=== PATIENT | male | born 1960 | race Caucasian/White ===

== ENCOUNTER 2017-02-25 07:42 | Emergency (ER) | payer MEDICAID ==
[~2017-02-25] VITALS: Ht 177.8 cm; Wt 90.0 kg
[~2017-02-25 07:42] MED LIST: AMLODIPINE5 MG PO; BENTYL10 MG PO; CIPROFLOXACN500 MG PO; COUMADIN5 MG PO; DICLOXACILL500 MG PO; FLEXERIL PO; LIPITOR20 MG PO; LISINOPRIL20 MG PO; NAPROSYN500 MG PO; NO; NORVASC PO; PERCOCET 5/325M1 TAB PO; PRILOSEC OTC20 MG OR; PYRIDIUM200 MG PO; ULTRAM50 MG PO
[2017-02-25 08:42] LABS: HEMATOCRIT 43.4 % (39.0-50.0); HEMOGLOBIN 14.7 g/dl (14.0-18.0); IMMATURE GRANULOCYTES 0.3 % (0.0-1.0); MEAN CELL VOLUME 99.3 fL CALC (80.0-100.0); MEAN CORPUSCULAR HGB 33.6 pG CALC (26.0-32.0); MEAN CORPUSCULAR HGB CONC 33.9 g/L CALC (32.0-36.0); NEUT# 4.24 thou/uL (1.82-7.42); RED BLOOD COUNT 4.37 mill/uL (4.70-6.10); RED CELL DISTRI WIDTH 13.1 % (11.5-15.5)
[2017-02-25 08:52] LABS: ALBUMIN 4.1 g/dL (3.2-5.0); ALKALINE PHOSPHATASE 98 u/l (38-126); AMYLASE 47 u/l (30-110); ANION GAP 15 (6-22 (CALC)); BILIRUBIN, TOTAL 0.7 mg/dL (0.0-1.4); BUN 10 mg/dL (9-20); BUN/CREATININE RATIO 12 (12-20 (CALC)); CALCIUM 9.1 mg/dL (8.4-10.2); CARBON DIOXIDE 26 mmol/l (22-30); CHLORIDE 106 mmol/l (95-108); CREATININE 0.9 mg/dL (0.7-1.3); ETHYL ALCOHOL 51 mg/dl (0-30); GFR > 60 ML/MIN (>=60 (CALC)); GFR FOR AFR.AMER. > 60 ML/MIN (>=60 (CALC)); GLUCOSE 82 mg/dL (75-110); LIPASE 144 u/l (23-300); POTASSIUM 4.4 mmol/l (3.5-5.1); SGOT/AST 40 u/l (17-59); SGPT/ALT 54 u/l (21-72); SODIUM 143 mmol/l (137-146); TOTAL PROTEIN 6.9 g/dL (6.3-8.2)
[2017-02-25 09:04] LABS: MYOGLOBIN 36 ng/mL (0 - 121)
[2017-02-25 09:14] LABS: INTERNATIONAL NORMALIZED RATIO 0.9 RATIO (0.7-1.3); PROTHROMBIN TIME 9.8 SECONDS (9.0-12.5)
[2017-02-25 11:02] LABS: URINE BILIRUBIN - DIPSTICK NEGATIVE (NEGATIVE); URINE BLOOD DIPSTICK NEGATIVE (NEGATIVE); URINE CLARITY CLEAR; URINE COLOR YELLOW; URINE GLUCOSE - DIPSTICK NEGATIVE (NEGATIVE); URINE KETONE NEGATIVE (NEGATIVE); URINE LEUK ESTERASE NEGATIVE (NEGATIVE); URINE NITRITE - DIPSTICK NEGATIVE (Negative); URINE PROTEIN - DIPSTICK NEGATIVE (NEG-TRACE); URINE SPECIFIC GRAVITY <=1.005; URINE UROBILINOGEN - DIPSTICK 0.2 E.U./dL (0.2)
[2017-02-25] MEDS ORDERED: PEPCID20 MG PO (11:23)
[2017-02-25] MEDS ORDERED: FLEXERIL PO (11:23)
[2017-02-25] MEDS ORDERED: MEDDOSEPAK PO (11:23)
[2017-02-25 11:28] VITALS: BP 155/96
== END 2017-02-25 11:30 | disposition home or self-care (01) | DRG 74 ==
LOC: ED 07:42
PROVIDERS: Emergency Medicine
DX: M54.12 Radiculopathy, cervical region (principal); G89.29 Other chronic pain; M54.2 Cervicalgia

== ENCOUNTER 2017-08-27 13:56 | Inpatient (IN) | payer MEDICAID ==
[2017-08-27] VITALS (9 sets, daily range): BP systolic 137–167; BP diastolic 77–105
[~2017-08-27] VITALS: Ht 177.8 cm; Wt 89.4 kg
[~2017-08-27 13:56] MED LIST changes: +MEDDOSEPAK PO; +PEPCID20 MG PO
--- NOTE | 2017-08-27 13:56 | NUR ---
PT TO ROOM 10 VIA EMS.
--- NOTE | 2017-08-27 14:15 | NUR ---
INTRODUCED SELT TO PT. PT REPORTS SOB, COUGH AND CHEST PAIN X 4 WEEKS. LS COURSE BILATERALLY, PATIENT REPORTS PRODUCTIVE COUGH WITH WHITE SPUTUM. PATIENT SINUS TACH ON THE MONITOR. MD AWARE OF PT CONDITION.
[2017-08-27 14:44] LABS: HEMATOCRIT 46.2 % (39.0-50.0); HEMOGLOBIN 15.8 g/dl (14.0-18.0); IMMATURE GRANULOCYTES 0.2 % (0.0-1.0); MEAN CELL VOLUME 102.7 fL CALC (80.0-100.0); MEAN CORPUSCULAR HGB 35.1 pG CALC (26.0-32.0); MEAN CORPUSCULAR HGB CONC 34.2 g/L CALC (32.0-36.0); NEUT# 3.08 thou/uL (1.82-7.42); RED BLOOD COUNT 4.5 mill/uL (4.70-6.10); RED CELL DISTRI WIDTH 11.9 % (11.5-15.5)
--- NOTE | 2017-08-27 15:10 | NUR ---
PATIENT REPORTS 8/10 MIDSTERNAL CHEST PAIN, PATIENT DENIES PAIN RADIATING AT THIS TIME. PATIENT REPORTS SOB SAO2 97% ON ROOM AIR. 2L OF O2 NC. NOTIFIED, AWAITING ORDERS.
[2017-08-27 15:34] LABS: ALBUMIN 4.2 g/dL (3.2-5.0); ALKALINE PHOSPHATASE 80 u/l (38-126); ANION GAP 18 (6-22 (CALC)); BILIRUBIN, TOTAL 0.6 mg/dL (0.0-1.4); BUN 6 mg/dL (9-20); BUN/CREATININE RATIO 8 (12-20 (CALC)); CALCIUM 9.1 mg/dL (8.4-10.2); CARBON DIOXIDE 25 mmol/l (22-30); CHLORIDE 110 mmol/l (95-108); CREATININE 0.8 mg/dL (0.7-1.3); GFR > 60 ML/MIN (>=60 (CALC)); GFR FOR AFR.AMER. > 60 ML/MIN (>=60 (CALC)); GLUCOSE 107 mg/dL (75-110); POTASSIUM 3.9 mmol/l (3.5-5.1); SGOT/AST 54 u/l (17-59); SGPT/ALT 63 u/l (21-72); SODIUM 149 mmol/l (137-146); TOTAL PROTEIN 6.8 g/dL (6.3-8.2)
--- NOTE | 2017-08-27 15:35 | NUR ---
PATIENT REPORTIGN COMTINUED 8/10 MID STERNAL CHEST PAIN. VERBAL ORDER RECIEVED FROM ER MD FOR NITRO 0.4 MG SL. NITRO SL GIVEN WILL CONTINUE TO MONITOR PATIENT.
[2017-08-27 15:44] LABS: MYOGLOBIN 24 ng/mL (0 - 121)
--- NOTE | 2017-08-27 15:49 | NUR ---
REPEAT EKG COMPLETED DUE TO CONTINUED CHEST PAIN. PATIENT SHOWING SINUS RHYTHM AT 89.
--- NOTE | 2017-08-27 16:30 | NUR ---
PATIENT REPORTS THE MORPHINE "HELPED FOR ABOUT A MINUTE". WHEN QUESTIONED FURTHER PATIENT REPORTS PAIN IS NOW A 5/10 "BUT IT'S COMING BACK" PATIENT AWARE OF PROBABLE ADMISSION. PATIENT RESTING COMFORTABLY IN STRETCHER WITH HOB ELEVATED. WILL CONTINUE TO MONITOR.
--- NOTE | 2017-08-27 17:00 | NUR ---
MD AT BEDSIDE TO DISCUSS RESULTS AND ADMISSION. PATIENT DENIES ANY SOB AT THIS TIME AND REPORTS CONTINUED 8/10 MID STERNAL CHEST PAIN. MD AWARE OF CONTINUED PAIN, AWAITING ADMIT ORDERS.
--- NOTE | 2017-08-27 17:17 | NUR ---
JOES MARIAAR PRINTED TO [id number].
--- NOTE | 2017-08-27 17:35 | NUR ---
PATIENT HYPERTENSIVE AND REPORTS CONTINUED 8/10 MIDSTERNAL CHEST PAIN, PATIENT DENIES SOB AT THIS TIME. AWAITING ORDERS.
--- NOTE | 2017-08-27 17:50 | NUR ---
IV NITRO INITIATED PER PROTOCOL. PATIENT DENIES ANY RELIEF FROM NITRO DRIP.
--- NOTE | 2017-08-27 18:15 | NUR ---
PATIENT REPORTS HX OF BILATERAL PE A FEW YEARS AGO. PATIENT WAS ON COUMADIN BUT HAS NOT BEEN ON IT FOR THE PAST YEAR OR SO. PATIENT STATES "YOU KNOW THIS [place] FEELS THE SAME THING". MD NOTIFIED.
--- NOTE | 2017-08-27 18:22 | NUR ---
PATIENT REPORTS PAIN IS NOW 5/10 AND HAS HAD SOME RELIEF. PATIENT AWARE OF PLAN OF CARE. WILL CONTINUE TO MONITOR.
--- NOTE | 2017-08-27 18:49 | NUR ---
PATIENT RETURNED FROM CT, PATIENT REPORTS SOB FROM LAYING FLAT DURING CT. HOB ELEVATED TO HF POSITION. PAITNE ON 2 L NC. SAO2 95% ON 2L NC. REPORT GIVEN TO LAVELL RUBI.
--- NOTE | 2017-08-27 18:55 | NUR ---
REPORT RECEIVED. CARE ASSUMED. PATIENT SITTING UP ON STRETCHER, ATTEMPTING TO EAT DINNER. STATES HIS WHOLE BODY JUST FEELS BAD. STATES HE FEELS LIKE HE IS STRUGGLING FOR AIR. PATIENT APPEARS ANXIOUS, ENCOURAGED TO BREATH THROUGH NOSE WHERE HE HAS O2 ON. AWAITING CT RESULTS PRIOR TO TRANSFER TO ICU. WILL CONTINUE TO MONITOR.
--- NOTE | 2017-08-27 19:30 | NUR ---
PATIENT STATES HIS FEELING IN HIS BODY IS UNCHANGED. REMAINS ANXIOUS BY APPEARANCE.
--- NOTE | 2017-08-27 19:32 | NUR ---
NTG GTT INCREASED TO 15MCG. STATES PAIN IS A 7 ON 1-10 PAIN SCALE. BP 166/95 IVF HUNG ORDERED. WILL CONTINUE TO MONITOR.
--- NOTE | 2017-08-27 19:53 | NUR ---
PATIENT ABLE TO FIND A POSITION OF COMFORT. STATES HE IS FEELING SLIGHTLY BETTER. NTG GTT REMAINS AT 15 MCG. BP IMPROVED. AWAITING BED ASSIGNMENT IN ICU.
--- NOTE | 2017-08-27 20:10 | NUR ---
REPORT CALLED TO ED IN ICU. PATIENT READIED FOR TRANSPORT TO FLOOR VIA STRETCHER, ON MONITOR, AND ACCOMPANIED BY RN.
--- NOTE | 2017-08-27 20:26 | NUR ---
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
--- NOTE | 2017-08-27 20:35 | NUR ---
ntg gtt titrated to 25mcg/min; po fluids and soda provided as per request
--- NOTE | 2017-08-27 21:01 | NUR ---
Dr Funes notified of pt complaints of midsternal chest pain rating 8/10; informed pt with complaints of SOB, sat 96% on 2L, lung sound coarse; also informed pt with complaints of "panic attack"; orders to be placed
--- NOTE | 2017-08-27 22:05 | NUR ---
awake in bed; admits to "some" pain relief; states pain as 6/10; iv patent; ntg gtt cont at 30mcg/min; sr on monitor; o2 per nc; no distress noted; call light within reach; will continue to monitor
--- NOTE | 2017-08-27 22:58 | NUR ---
awake; complaints of "panic" feeling; admits to pain feeling better; medicated with ativan as per orders
--- NOTE | 2017-08-27 23:50 | NUR ---
awake; no distress noted; voices no complaints at this time; iv patent; ntg gtt at 30mcg/min; no redness or edema noted at site; pt voided 275 cc cortez urine; specimen sent to lab; sr on monitor; o2 per nc; call light within reach; will continue to monitor
[2017-08-28] VITALS (25 sets, daily range): BP systolic 140–170; BP diastolic 74–92
[2017-08-28 00:02] LABS: URINE BILIRUBIN - DIPSTICK NEGATIVE (NEGATIVE); URINE BLOOD DIPSTICK NEGATIVE (NEGATIVE); URINE CLARITY CLEAR; URINE COLOR YELLOW; URINE GLUCOSE - DIPSTICK NEGATIVE (NEGATIVE); URINE KETONE NEGATIVE (NEGATIVE); URINE LEUK ESTERASE NEGATIVE (NEGATIVE); URINE NITRITE - DIPSTICK NEGATIVE (Negative); URINE PH 5.5 (4.5-8.0); URINE PROTEIN - DIPSTICK NEGATIVE (NEG-TRACE); URINE UROBILINOGEN - DIPSTICK 0.2 E.U./dL (0.2)
--- NOTE | 2017-08-28 00:20 | NUR ---
paving and surfacing labourer at bedside
--- NOTE | 2017-08-28 01:29 | NUR ---
pt with complaints of midsternal chest pain rating 8/10; medicated as per orders; rishabh cross provided as per pt request; will continue to monitor
--- NOTE | 2017-08-28 02:17 | NUR ---
awake; admits to some pain relief; no distress noted; sr on monitor; iv patent; call light within reach; will continue to monitor
--- NOTE | 2017-08-28 03:53 | NUR ---
pt infection control specialist light stating "I don't feel well"; when asked to elaborate, pt states I have a headache and my nerves are bad; medicated with tylenol and librium as per orders; will continue to monitor
--- NOTE | 2017-08-28 05:52 | NUR ---
awake; requesting "shot"; admits to pain rating 8/10 in midsternal area and headache; medicated; sr on monitor; iv patent; no redness or edema noted at site; o2 per nc; labels molder at bedside; bed in lowest position; call light within reach
[2017-08-28 06:12] LABS: HEMATOCRIT 39.9 % (39.0-50.0); HEMOGLOBIN 13.4 g/dl (14.0-18.0); IMMATURE GRANULOCYTES 0.3 % (0.0-1.0); MEAN CELL VOLUME 103.6 fL CALC (80.0-100.0); MEAN CORPUSCULAR HGB 34.8 pG CALC (26.0-32.0); MEAN CORPUSCULAR HGB CONC 33.6 g/L CALC (32.0-36.0); NEUT# 5.11 thou/uL (1.82-7.42); RED BLOOD COUNT 3.85 mill/uL (4.70-6.10); RED CELL DISTRI WIDTH 11.8 % (11.5-15.5)
[2017-08-28 06:25] LABS: ANION GAP 10 (6-22 (CALC)); BUN 9 mg/dL (9-20); BUN/CREATININE RATIO 11 (12-20 (CALC)); CALCIUM 8.7 mg/dL (8.4-10.2); CARBON DIOXIDE 29 mmol/l (22-30); CHLORIDE 107 mmol/l (95-108); CREATININE 0.8 mg/dL (0.7-1.3); GFR > 60 ML/MIN (>=60 (CALC)); GFR FOR AFR.AMER. > 60 ML/MIN (>=60 (CALC)); GLUCOSE 95 mg/dL (75-110); MAGNESIUM 1.7 mg/dL (1.6-2.3); POTASSIUM 3.6 mmol/l (3.5-5.1); SODIUM 142 mmol/l (137-146)
[2017-08-28 06:26] LABS: CHOLESTEROL HDL RATIO 1.6 (<4.4 (CALC))
--- NOTE | 2017-08-28 07:25 | NUR ---
PT SITTING UP IN BED, ALERT AND ORIENTED, SKIN WARM AND DRY, PT COMPLAINTS OF MIDSTERNAL PAIN WITH HEADACHE, AGAIN EDUCATED REGARDING HEADACHE RELATED TO NITRO GTT, AM ASSESSMENT COMPLETED, SEE INTERVENTIONS, BILATERAL TARIQ HOSE IN PLACE, IV NITRO GTT CONTINUES WITH BP CONTROLLED SEE INTERVENTIONS, PT COMPLAINS OF MIDSTERNAL PAIN, STATES 7 OUT OF 10, NO GRIMACING OR S/S OF PAIN NOTED WITH MOVEMENT, PT STATES IT HASN'T CHANGED MUCH SINCE HE ARRIVED EVEN WITH THE MORPHINE ADMINISTRATION, WILL ADDRESS WITH MD ON ROUNDS, TROPONINS REMAIN NEGATIVE, BP CONTROLLED WITH NITRO GTT, PT TOOK LISINOPRIL 40 MG IN PAST BUT STATES HE STOPPED TAKING IT IN [place] BECAUSE "HIS BP WAS OK WITHOUT IT" WHEN ASKED HOW OFTEN HE TOOK IT HE STATES "COUPLE TIMES A WEEK" WHEN I ASKED HIM WHAT "GOOD" WAS HE STATES 180/135, WHEN INFORMED THAT WASN'T A GOOD BP AND EDUCATED REGARDING WHAT PARAMETERS WERE, PT THEN STATES "I MEAN IT WAS 135/80", NO SHORTNESS OF BREATH OR DISTRESS NOTED, O2 ON AT 2L VIA NC, 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 ENCOURAGED TO CALL FOR ANY NEEDED ASSISTANCE.
--- NOTE | 2017-08-28 07:50 | NUR ---
SET UP ASSIST PROVIDED FOR AM MEAL
--- NOTE | 2017-08-28 09:43 | NUR ---
at bedside, pt admits to srinking about "a six pack a day" sometimes more, medicated for pain as ordered, will monitor tolerance, call grant remains within reach, monitoring BP closely related to attempting to wean Nitro, call grant within reach.
[2017-08-28 10:18] LABS: COCAINE POSITIVE (NEGATIVE); METHADONE NEGATIVE (NEGATIVE); TETRAHYDROCANNABIONOL POSITIVE (NEGATIVE); TRICYLIC ANTIDEPRESSANTS NEGATIVE (NEGATIVE)
[2017-08-28 10:19] LABS: BARBITURATES NEGATIVE (NEGATIVE); OXCYCODONE NEGATIVE (NEGATIVE)
--- NOTE | 2017-08-28 10:28 | NUR ---
Soniya HUMAN SERVICE SPECIALIST at bedside, offers no new complaints, will continue to monitor.
--- NOTE | 2017-08-28 11:15 | NUR ---
NTG GTT REMAINS OFF SINCE 949, TOLERATING WELL WITH BP MAINTAINED, SEE INTERVENTIONS FOR DETAILS, CALL NAYLOR WITHIN REACH
--- NOTE | 2017-08-28 11:17 | NUR ---
SET UP ASSIST PROVIDED FOR AFTERNOON MEAL.
--- NOTE | 2017-08-28 13:00 | NUR ---
COTNINUES TO TOLERATE NTG GTT ON HOLD, BP REMAINS XONTROLLED TOLERATED AFTERNOON MEAL WELL, NO FURTHER COMPLAINTS OFFERED, WILL CONTINUE TO MONITOR.
--- NOTE | 2017-08-28 13:29 | NUR ---
RT AT BEDSIDE FOR BREATHING TREATMENT, USES URINAL W/O INCIDENT,
--- NOTE | 2017-08-28 14:29 | NUR ---
SPOKE WITH PATIENT REGARDING POSSIBLE D/C, STOPPING DRINKING (WITH MEDICAL HELP RELATED TO D/T'S) AND FOLLOW UP CARE AFTER D/C, PT VERBALIZES UNDERSTANDING BUT ARLENE REQUIRE REINFORCEMENT, WILL CONTINUE TO MONITOR.
--- NOTE | 2017-08-28 16:13 | NUR ---
PT RESTING, IN BED, MEDICATED WITH LIBRIUM EARLIER FOR ANXIETY PER PT REQUEST, CALL NAYLOR WITHIN REACH, ENCOURAGED TO CALL FOR ANY NEEDED ASSISTANCE
--- NOTE | 2017-08-28 16:55 | NUR ---
PT COMPLAINS OF FEELING LIKE HIS SKIN IS CRAWLING, MEDICATED FOR ANXIETY ORDERED, WILL CONTINUE TO MONITOR.
--- NOTE | 2017-08-28 17:23 | NUR ---
CASE MGMT IN TO SEE PATIENT.
--- NOTE | 2017-08-28 17:34 | NUR ---
SET UP ASSIST PROVIDED FOR PM KRISTIN, STATES MEDICATION HELPED AND HE FEELS A LITTLE BETTER, CALL NAYLOR WITHIN REACH
--- NOTE | 2017-08-28 18:30 | NUR ---
TOLERATED PM MEAL WELL, OFFERS NO NEW COMPLAINTS, CALL NAYLOR WITHIN REACH, AWARE OF PLANNED D/C TOMORROW
--- NOTE | 2017-08-28 19:00 | NUR ---
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
--- NOTE | 2017-08-28 19:59 | NUR ---
awake in bed; no distress noted; pt voices no complaints; sr on monitor; o2 per nc; iv's intact; deny needs; call light within reach; will continue to monitor
--- NOTE | 2017-08-28 21:41 | NUR ---
pt programmer numerical control light; appears anxious; med schedule explained; pt medicated with libruim; will continue to monitor
--- NOTE | 2017-08-28 22:05 | NUR ---
pt awake in bed; soda provided as per request; iv's intact; sr on monitor; call light within reach; will continue to monitor
[2017-08-29] VITALS (8 sets, daily range): BP systolic 152–173; BP diastolic 84–110
--- NOTE | 2017-08-29 00:02 | NUR ---
awake in bed; no distress noted; resp even and unlabored; sb on monitor; rishabh cross provided as per request; iv's intact; o2 per nc; call light within reach; will continue to monitor
--- NOTE | 2017-08-29 02:09 | NUR ---
awake in bed; no distress noted; appears anxious/agitated; states "nerves bad"; medicated with ativansr on monitor; offers no complaints of pain; call light within reach; will continue to monitor
--- NOTE | 2017-08-29 04:30 | NUR ---
awake in bed; no distress noted; admits to midsternal chest pain; tylenol offered/too soon for ultram; medicated with apresoline for bp of 164/92; sr on monitor; ra; o2 sat 97%; denies needs; call light within reach; will continue to monitor
--- NOTE | 2017-08-29 04:50 | NUR ---
phlebotomy at bedside
[2017-08-29 05:50] LABS: HEMATOCRIT 41.7 % (39.0-50.0); HEMOGLOBIN 14.1 g/dl (14.0-18.0); IMMATURE GRANULOCYTES 0.4 % (0.0-1.0); MEAN CELL VOLUME 102.7 fL CALC (80.0-100.0); MEAN CORPUSCULAR HGB 34.7 pG CALC (26.0-32.0); MEAN CORPUSCULAR HGB CONC 33.8 g/L CALC (32.0-36.0); NEUT# 3.73 thou/uL (1.82-7.42); RED BLOOD COUNT 4.06 mill/uL (4.70-6.10); RED CELL DISTRI WIDTH 11.4 % (11.5-15.5)
--- NOTE | 2017-08-29 06:03 | NUR ---
pt awake in bed; no distress noted; complaints of midsternal chest pain rating 8/10; no facial grimaces of pain noted; medicated as per orders; pt voices concerns of needing a stronger medication; iv's intact; sr on monitor; bed in lowest position; call light within reach;
[2017-08-29 06:08] LABS: ANION GAP 10 (6-22 (CALC)); BUN 9 mg/dL (9-20); BUN/CREATININE RATIO 13 (12-20 (CALC)); CALCIUM 9.3 mg/dL (8.4-10.2); CARBON DIOXIDE 28 mmol/l (22-30); CHLORIDE 105 mmol/l (95-108); CREATININE 0.7 mg/dL (0.7-1.3); GFR > 60 ML/MIN (>=60 (CALC)); GFR FOR AFR.AMER. > 60 ML/MIN (>=60 (CALC)); GLUCOSE 89 mg/dL (75-110); POTASSIUM 3.8 mmol/l (3.5-5.1); SODIUM 138 mmol/l (137-146)
--- NOTE | 2017-08-29 07:24 | NUR ---
SHIFT CHANGE REPORT FROM SIMBA WARD SLEEPING BUT AWAKENED TO VERBAL STIMULI, C/O MIDSTERNAL CONSTANT ACHING PAIN @ 8/10 AT THIS TIME AND IS REQUESTING "SOMETHING STRONGER THAN ULTRAM". ADVISED CONCERN WILL BE ADDRESSED WITH MD. ENCOURAGED TO GET OOB TO CHAIR BUT STATES HE JUST WANTS TO ELEVATE HOB AND STAY IN BE FOR NOW. ENCOURAGED NEED TO BE UP AFTER MEAL FOR AM CARE AND LINNEN CHANGE. ALL MONITORS IN PLACE AND VITAL SIGNS BEING MONITORED, CALL NAYLOR IN REACH.
--- NOTE | 2017-08-29 10:01 | NUR ---
SITTING UP IN RECLINER, ALL NEEDS ADDRESSED, CALL NAYLOR IN REACH AND FAMILY AT IN ROOM VISITING.
[2017-08-29] MEDS ORDERED: AMLODIPINE BESYL5 MG PO (10:21)
[2017-08-29] MEDS ORDERED: LIBRIUM25 M1 PO (10:21)
[2017-08-29] MEDS ORDERED: LISINOPRIL20 M1 PO (10:21)
[2017-08-29] MEDS ORDERED: ASPIRIN CHEWABL81 MG PO (10:21)
--- NOTE | 2017-08-29 10:25 | NUR ---
DR DAUGHERTY HERE AT THIS TIME ROUNDING WITH PT, INFORMED PT OF CARE PLAN.
--- NOTE | 2017-08-29 10:55 | NUR ---
Discharge instructions given. Patient verbalizes understanding of same. Discharged in stable condition via Ambulatory to Home with *Other. All belongings sent with pt. PT ANXIOUS TO LEAVE AT THIS TIME, STATING "THEY ARE KICKING ME OUT". D/C INSTRUCTIONG GIVEN, PT REFUSED TO BE TRANSFERRED OFF UNIT VIA W/C AND AMBULATED. NO EVIDENCE OF FALL RISK OBSERVED, GAIT STEADY.
== END 2017-08-29 10:50 | disposition home or self-care (01) | DRG 313 ==
LOC: ED 13:56 → ED-I 16:20 → ED 17:14 → MS2 17:15 → ICU 17:30 → MS2 17:30 → ICU 17:30
PROVIDERS: Emergency Medicine; Nurse Practitioner Family; ADMIT Internal Medicine; ATTEND Internal Medicine
DX: R07.9 Chest pain, unspecified (principal); I10 Essential (primary) hypertension; F10.239 Alcohol dependence with withdrawal, unspecified; I16.0 Hypertensive urgency; F17.210 Nicotine dependence, cigarettes, uncomplicated; F10.220 Alcohol dependence with intoxication, uncomplicated; F14.10 Cocaine abuse, uncomplicated; Y90.6 Blood alcohol level of 120-199 mg/100 ml; Z87.01 Personal history of pneumonia (recurrent); Z86.711 Personal history of pulmonary embolism
CPT/HCPCS: J2060; Q9967